=== PATIENT | male | born 1965 | race Caucasian/White ===

== ENCOUNTER 2023-05-07 09:14 | Outpatient (REF) | payer OTHER, SELFPAY ==
[2023-05-07 15:18] LABS: HCT 49.7 % (40.0-50.0); HGB 16.6 g/dL (13.5-17.5); MCH 28.7 pg (27.0-33.0); MCHC 33.4 % (32.0-36.0); MCV 86 fL (80-95); MPV 9.7 fL (8.0-11.0); Platelet Count 315 10^3/uL (130-400); RBC 5.78 10^6/uL (4.36-5.78); RDW 13.3 % (11.8-14.1); RDW-SD 41.8 fL; WBC 5.31 10^3/uL (4.4-10.8)
[2023-05-07 16:36] LABS: ALT 44 U/L (16-63); AST 32 U/L (15-37); Alkaline Phosphatase 92 U/L (46-116); Anion Gap 9.6 mmol/L (3-11); BUN 21 mg/dL (7-18); Bilirubin, Total 0.5 mg/dL (0.2-1.0); CO2 26.4 mmol/L (21.0-32.0); Calcium 9.1 mg/dL (8.5-10.1); Calculated LDL 187 mg/dL (<100); Chloride 106 mmol/L (98-107); Cholesterol 267 mg/dL (<200); Estimated GFR 87.24 (mL/min/1.73m2); Glucose 98 mg/dL (74-106); HDL Cholesterol 62 mg/dL (40-60); Potassium 4.2 mmol/L (3.5-5.1); Sodium 142 mmol/L (136-145); Total Protein 7.6 g/dL (6.4-8.2); Triglyceride 93 mg/dL (<150)
== END 2023-05-07 09:15 | disposition home or self-care (01) ==
LOC: NCHCN 09:14
PROVIDERS: Visit Provider Family Medicine
DX: Z00.00 Encounter for general adult medical examination without abnormal findings (principal); E66.9 Obesity, unspecified
CPT/HCPCS: 80053; 80061; 85027; 84443

== ENCOUNTER 2023-09-09 10:40 | Outpatient (REF) | payer OTHER, SELFPAY ==
[2023-09-09 14:57] LABS: Calculated LDL 194 mg/dL (<100); Cholesterol 281 mg/dL (<200); HDL Cholesterol 62 mg/dL (40-60); Triglyceride 125 mg/dL (<150)
== END 2023-09-09 10:41 | disposition home or self-care (01) ==
LOC: NCHCN 10:40
PROVIDERS: PCP Family Medicine; Visit Provider Family Medicine
DX: E78.5 Hyperlipidemia, unspecified (principal)
CPT/HCPCS: 80061

== ENCOUNTER 2024-01-22 14:23 | Outpatient (REF) | payer OTHER, SELFPAY ==
[2024-01-25 09:56] LABS: PSA, Diagnostic 3.9 ng/mL (<=3.5)
== END 2024-01-22 14:24 | disposition home or self-care (01) ==
LOC: NCHCN 14:23
PROVIDERS: PCP Family Medicine; Visit Provider Family Medicine
DX: R97.20 Elevated prostate specific antigen [PSA] (principal)
CPT/HCPCS: 84153

== ENCOUNTER 2024-07-26 18:55 | Outpatient (REF) | payer OTHER, SELFPAY ==
[2024-07-26 22:12] LABS: Calculated LDL 172 mg/dL (<100); Cholesterol 259 mg/dL (<200); HDL Cholesterol 58 mg/dL (40-60); Triglyceride 148 mg/dL (<150)
[2024-07-27 19:30] LABS: PSA, Screening 4.1 ng/mL (<=3.5)
== END 2024-07-26 18:56 | disposition home or self-care (01) ==
LOC: NCHCN 18:55
PROVIDERS: PCP Family Medicine; Visit Provider Family Medicine
DX: R97.20 Elevated prostate specific antigen [PSA] (principal); Z13.6 Encounter for screening for cardiovascular disorders
CPT/HCPCS: 80061; 84153

== ENCOUNTER 2025-10-25 10:16 | Outpatient (REF) | payer OTHER, SELFPAY ==
[2025-10-25 15:34] LABS: Abs Immature Grans 0.03 10^3/uL (0.0-0.06); HCT 47.0 % (40.0-50.0); HGB 15.8 g/dL (13.5-17.5); Immature Grans % 0.4 %; MCH 29.3 pg (27.0-33.0); MCHC 33.6 % (32.0-36.0); MCV 87 fL (80-95); MPV 10.3 fL (8.0-11.0); Platelet Count 265 10^3/uL (130-400); RBC 5.39 10^6/uL (4.36-5.78); RDW 13.5 % (11.8-14.1); RDW-SD 43.0 fL; WBC 8.40 10^3/uL (4.4-10.8)
[2025-10-25 15:50] LABS: ALT 26 U/L (10-49); AST 26 U/L (<34); Albumin 4.6 g/dL (3.2-5.0); Alkaline Phosphatase 84 U/L (46-116); Anion Gap 7.9 mmol/L (3-11); BUN 18 mg/dL (9-23); Bilirubin, Total 0.6 mg/dL (0.2-1.2); CO2 27.1 mmol/L (20.0-31.0); Calcium 9.5 mg/dL (8.3-10.6); Chloride 108 mmol/L (98-107); Cholesterol 202 mg/dL (<200); Glucose 94 mg/dL (74-106); HDL Cholesterol 61 mg/dL (>or=40); Potassium 4.3 mmol/L (3.5-5.1); Sodium 143 mmol/L (136-145); Total Protein 7.8 g/dL (5.7-8.2)
== END 2025-10-25 10:17 | disposition home or self-care (01) ==
LOC: NCHCN 10:16
PROVIDERS: PCP Family Medicine; Visit Provider Family Medicine
DX: R97.20 Elevated prostate specific antigen [PSA] (principal); J18.9 Pneumonia, unspecified organism; E78.9 Disorder of lipoprotein metabolism, unspecified
CPT/HCPCS: 80053; 80061; 84154; 85025